=== PATIENT | male | born 1985 | race Caucasian/White ===

== ENCOUNTER 2017-10-21 01:50 | Emergency (ER) | payer BC ==
[2017-10-21] MEDS ORDERED: Sodium Chloride 0.9% 10 ML Syringe FLUSH PRN (02:28)
[2017-10-21] MEDS ORDERED: diphenhydrAMINE 50 MG/ML SDV IVPUSH ONE (02:28)
[2017-10-21] MEDS ORDERED: Prochlorperazine 10 MG/2 ML SDV IVPUSH ONE (02:28)
[2017-10-21] MEDS ORDERED: Ketorolac 30 MG/ML SDV IVPUSH ONE (02:29)
[2017-10-21] MEDS ORDERED: Sodium Chloride 0.9% 1,000 ML IV SCH (02:30)
--- NOTE | 2017-10-21 03:44 | EDM.PDOC ---
ED HPI GENERAL MEDICAL PROBLEM - General Chief Complaint: Gastrointestinal Problem Stated Complaint: FEVER/CHILLS/SICK Time Seen by Provider: 10/21/17 02:16 Source of Information: Reports: Patient History Limitations: Reports: No Limitations - History of Present Illness INITIAL COMMENTS - FREE TEXT/NARRATIVE: This patient comes in with sudden onset of vomiting and diarrhea. He is been at [facility] and his symptoms started at about midnight. They been eating Food that is prepared for them. Nobody else got sick. He said he is sweating profusely he feels hot and that he feels like he's freezing. He doesn't know if maybe he might have the flu. He did not get a flu shot. He denies sore throat or cough. He does have some abdominal cramping abd Pain Score (Numeric/FACES): 6 - Related Data Allergies Allergy/AdvReac Type Severity Reaction Status Date / Time No Known Allergies Allergy Verified 10/21/17 02:06 Home Meds: Home Meds Citalopram [Citalopram HBr] 30 mg PO DAILY 10/21/17 [History] Cyclobenzaprine [Flexeril] 10 mg PO TID PRN 10/21/17 [History] Naproxen [IJD: Naproxen] 500 mg PO BID 10/21/17 [History] Past Medical History HEENT History: Reports: Impaired Vision Endocrine/Metabolic History: Reports: Obesity/BMI 30+ - Past Surgical History GI Surgical History: Reports: Appendectomy, Hernia, Inguinal Social & Family History - Tobacco Use Smoking Status *Q: Current Every Day Smoker Years of Tobacco use: 17 Packs/Tins Daily: 0.2 - Caffeine Use Caffeine Use: Reports: Coffee, Energy Drinks - Recreational Drug Use Recreational Drug Use: No ED ROS GENERAL - Review of Systems Review Of Systems: See Below Constitutional: Reports: Chills, Diaphoresis HEENT: Reports: No Symptoms Respiratory: Reports: No Symptoms Cardiovascular: Reports: No Symptoms Endocrine: Reports: No Symptoms GI/Abdominal: Reports: Abdominal Pain, Diarrhea, Vomiting : Reports: No Symptoms Musculoskeletal: Reports: No Symptoms (Denies body aches) Skin: Reports: No Symptoms Neurological: Reports: No Symptoms Psychiatric: Reports: No Symptoms Hematologic/Lymphatic: Reports: No Symptoms Immunologic: Reports: No Symptoms ED EXAM, GI/ABD - Physical Exam Exam: See Below Exam Limited By: No Limitations General Appearance: Alert, WD/WN, Moderate Distress (Paroxysms of dry heaves small amount of vomiting.) Eyes: Bilateral: Normal Appearance Ears: Normal External Exam Throat/Mouth: Normal Oropharynx Head: Atraumatic Neck: Normal Inspection Respiratory/Chest: No Respiratory Distress, Lungs Clear Cardiovascular: Regular Rate, Rhythm GI/Abdominal Exam: Normal Bowel Sounds, Soft, Non-Tender Extremities: Normal Inspection Neurological: Alert, Oriented Psychiatric: Normal Affect Skin Exam: Cool, Diaphoretic Lymphatic: No Adenopathy Course - Vital Signs Last Recorded V/S: Last Vital Signs Temp 36.2 C 10/21/17 03:27 Pulse 80 10/21/17 02:08 Resp 20 10/21/17 02:08 BP 165/88 H 10/21/17 02:08 Pulse Ox 100 10/21/17 02:08 - Orders/Labs/Meds Orders: Active Orders 24 hr Category Date Time Status Saline Lock Insert [OM.PC] Urgent Oth 10/21/17 02:27 Ordered Labs: Laboratory Tests 10/21/17 10/21/17 Range/Units 02:34 02:34 WBC 17.0 H (4.5-11.0) K/uL RBC 5.27 (4.30-5.90) M/uL Hgb 15.3 H (12.0-15.0) g/dL Hct 44.2 (40.0-54.0) % MCV 84 (80-98) fL MCH 29 (27-31) pg MCHC 35 (32-36) % Plt Count 401 H (150-400) K/uL Neut % (Auto) 80 H (36-66) % Lymph % (Auto) 9 L (24-44) % [place] % (Auto) 11 H (2-6) % Eos % (Auto) 1 L (2-4) % Baso % (Auto) 0 (0-1) % Sodium 143 (140-148) mmol/L Potassium 3.5 L (3.6-5.2) mmol/L Chloride 104 (100-108) mmol/L Carbon Dioxide 23 (21-32) mmol/L Anion Gap 19.5 H (5.0-14.0) mmol/L BUN 24 H (7-18) mg/dL Creatinine 1.2 (0.8-1.3) mg/dL Est Cr Clr Drug Dosing 100.85 mL/min Estimated GFR (MDRD) > 60 (>60) Glucose 177 H (74-106) mg/dL Calcium 9.4 (8.5-10.1) mg/dL Total Bilirubin 0.6 (0.2-1.0) mg/dL AST 33 (15-37) U/L ALT 80 H (12-78) U/L Alkaline Phosphatase 100 (46-116) U/L Total Protein 7.6 (6.4-8.2) g/dL Albumin 4.4 (3.4-5.0) g/dL Globulin 3.2 (2.3-3.5) g/dL Albumin/Globulin Ratio 1.4 (1.2-2.2) Meds: Medications Discontinued Medications Generic Name Dose Route Start Last Admin Trade Name Freq PRN Reason Stop Dose Admin Diphenhydramine HCl 50 mg 10/21/17 02:28 10/21/17 02:40 Benadryl IVPUSH 10/21/17 02:29 50 mg ONETIME ONE Administration Sodium Chloride 1,000 mls @ 999 mls/hr 10/21/17 02:30 10/21/17 02:39 Normal Saline IV 999 mls/hr ASDIRECTED NEYMAR Administration Ketorolac Tromethamine 30 mg 10/21/17 02:29 10/21/17 02:43 Toradol IVPUSH 10/21/17 02:30 30 mg ONETIME ONE Administration Prochlorperazine Edisylate 10 mg 10/21/17 02:28 10/21/17 02:37 Compazine IVPUSH 10/21/17 02:29 10 mg ONETIME ONE Administration Sodium Chloride 10 ml 10/21/17 02:28 10/21/17 02:44 Saline Flush FLUSH 10 ml ASDIRECTED PRN Administration Keep Vein Open - Re-Assessments/Exams Free Text/Narrative Re-Assessment/Exam: 10/21/17 06:44 An IV was established. He was given 1 L IV normal saline. Also received 10 no hemorrhage promethazine and 50 mg Benadryl to prevent EPS. Also gave him Toradol 30 mg IV to help with his rigors. Food poisoning is definitely a possibility with this patient but his severe chills and rigors indicate a flulike illness. His influenza antigen test is negative but I think his symptoms are overwhelmingly flulike so will treat him as such Departure - Departure Time of Disposition: 03:40 Disposition: Home, Self-Care 01 Condition: Fair Clinical Impression: Influenza-like illness - Discharge Information Instructions: Influenza, Adult, [id number], Food Poisoning, [id number] Referrals: PCP,None [Primary Care Provider] - Forms: ED Department Discharge Additional Instructions: Your symptoms could either be due to influenza or food poisoning probably staph. If this is food poisoning by staff it should be all over with in just a few hours. If by noon today you're beginning to feel back to normal then that would suggest that this is food poisoning. If you're not feeling a lot better than I think it's most likely influenza and you should start the Tamiflu. You take it 75 mg twice daily for 5 days. When treating flu it's important to start the medication as early as possible. After 48 hours there is no point in bothering to take it. Go ahead and take the Phenergan for nausea and vomiting. This will make you very sleepy so don't even consider driving a vehicle or operating any machinery while taking this medication. I recommend a clear liquid diet for the next 24 hours. Many people drink an electrolyte containing product such as Gatorade. - My Orders Last 24 Hours: My Active Orders 10/21/17 02:27 Saline Lock Insert [OM.PC] Urgent - Assessment/Plan Last 24 Hours: My Active Orders 10/21/17 02:27 Saline Lock Insert [OM.PC] Urgent
== END 2017-10-21 03:50 | disposition home or self-care (01) ==
LOC: JP.ED 01:50
DX: J11.1 Influenza due to unidentified influenza virus with other respiratory manifestations (principal); F17.210 Nicotine dependence, cigarettes, uncomplicated; Z79.899 Other long term (current) drug therapy
CPT/HCPCS: 36415; 80053; 85025; 87804; 96361; 96374; 96375; 99284; J0780; J1200; J1885; J7040; J7050